=== PATIENT | male | born 2005 | race African-American/Black ===

== ENCOUNTER 2024-02-07 11:22 | Emergency (ER) | payer OTHER ==
[~2024-02-07] VITALS: Ht 177.8 cm; Wt 90.9 kg
[2024-02-07] MEDS ORDERED: Iohexol 300 - 100 ML VIAL IV ONE (12:18)
[2024-02-07 12:33] LABS: BASO # 0.01 K/mm3 (0.02-0.10); EOS # 0.18 K/mm3 (0.04-0.40); EOS % 2.6 % (0.0-4.0); HEMATOCRIT 44.4 % (36.0-47.0); LYMPH# 1.58 K/mm3 (1.50-4.00); MEAN CELL VOLUME 88 fl (78-95); MEAN CORPUSCULAR HEMOGLOBIN 30 pg (26-32); MEAN CORPUSCULAR HGB CONC 34 g/dL (33-37); MEAN PLATELET VOLUME 10.5 fl (7.4-10.4); MONO # 0.44 K/mm3 (0.20-0.80); NEU # 4.71 K/mm3 (1.40-6.50); PLATELET COUNT 193 K/mm3 (130-400); RED BLOOD COUNT 5.06 M/mm3 (4.20-5.60); RED CELL DISTRIBUTION WIDTH 11.3 % (11.5-14.5); WHITE BLOOD COUNT 6.9 K/mm3 (4.8-10.8)
[2024-02-07 12:41] LABS: ALBUMIN 4.5 g/dL (3.5-5.0)
[2024-02-07 12:42] LABS: CALCIUM 10.3 mg/dL (8.3-10.5)
[2024-02-07 12:43] LABS: TOTAL PROTEIN 7.9 g/dL (6.4-8.3)
[2024-02-07 12:45] LABS: TOTAL BILIRUBIN 0.8 mg/dL (0.2-1.2)
[2024-02-07] MEDS ORDERED: NS 1,000 ML IV SCH (12:45)
[2024-02-07] MEDS ORDERED: Ondansetron 4 MG/2 ML VIAL IV ONE (12:45)
[2024-02-07] MEDS ORDERED: ZOFRAN ODT4 MG PO (13:20)
[2024-02-07 13:35] VITALS: BP 138/78
[2024-02-07 13:57] LABS: PH-URINE 8.5 (5.0 - 8.0); URINE APPEARANCE CLEAR (CLEAR); URINE BILIRUBIN NEGATIVE (NEGATIVE); URINE BLOOD NEGATIVE (NEGATIVE); URINE COLOR YELLOW (YELLOW); URINE GLUCOSE NEGATIVE (NEGATIVE); URINE LEUKOCYTE ESTERASE NEGATIVE (NEGATIVE); URINE NITRATE NEGATIVE (NEGATIVE); URINE PROTEIN(semi-quant) NEGATIVE (NEGATIVE); URINE WBC 0-1 /hpf (0-3)
== END 2024-02-07 16:35 | disposition home or self-care (01) ==
LOC: ED 11:22
PROVIDERS: Nurse Practitioner Family
DX: K52.9 Noninfective gastroenteritis and colitis, unspecified (principal)
CPT/HCPCS: J2405; J7030; Q9967

== ENCOUNTER → 2024-02-27 | Outpatient (CLI) | payer OTHER ==
[~2024-02-27] MED LIST: ZOFRAN ODT4 MG PO
== END ==
LOC: LAB 14:37
DX: Z20.2 Contact with and (suspected) exposure to infections with a predominantly sexual mode of transmission (principal)